=== PATIENT | male | born 1945 | race Caucasian/White ===

== ENCOUNTER → 2021-04-11 10:51 | Outpatient (CLI) | payer MEDICARE, OTHER, SELFPAY ==
[2021-04-11 11:12] LABS: RBC Urine None Seen (0-5/HPF)
[2021-04-11 11:38] LABS: Bilirubin Urine UA NEGATIVE (NEGATIVE); Color Urine UA YELLOW; Glucose Urine UA NEGATIVE (Negative); Ketones Urine UA NEGATIVE (NEGATIVE); Leukocyte Esterase Urine UA 1+ (NEGATIVE); Nitrite Urine UA NEGATIVE (Negative); Occult Blood Urine UA NEGATIVE (Negative); Protein Urine UA TRACE (Negative); Specific Gravity Urine UA 1.015 (1.000-1.035); Urobilinogen Urine UA 0.2 E.U./dL (0.2); pH Urine UA 7.5 (4.5-8.0)
[2021-04-11 11:40] LABS: Add Manual Diff / Slide Review NO; Basophils Absolute Auto 100 /uL (0-100); Basophils Percent Auto 0.6 % (0-2); Eosinophils Absolute Auto 200 /uL (0-450); Eosinophils Percent Auto 2.2 % (2-4); Hematocrit 43.4 % (41-53); Hemoglobin 14.8 g/dL (13.5-17.5); Lymphocytes Absolute Auto 2200 /uL (1100-4500); Lymphocytes Percent Auto 21.6 % (25-40); Mean Corpuscular HGB Conc 34.1 % (30-36); Mean Corpuscular Hemoglobin 29.3 PG (26-34); Monocytes Absolute Auto 900 /uL (0-900); Monocytes Percent Auto 9.1 % (3-14); Neutrophils Absolute Auto 6700 /uL (1500-7000); Neutrophils Percent Auto 66.5 % (50-75); Platelet Count 267 X10^3/uL (150-400); Red Blood Cell Count 5.05 X10^6/uL (4.5-5.9); Red Cell Distribution Width 14.1 % (11.6-14.8)
[2021-04-11 12:24] LABS: BUN Creatinine Ratio 18.3 (6-22); Blood Urea Nitrogen 15 mg/dL (9-20); Calcium 9.7 mg/dL (8.4-10.2); Carbon Dioxide 27 mmol/L (22-32); Chloride 100 mmol/L (98-107); Estimated Glomerular Filt Rate > 60.0 mL/min (>60); Glucose 133 mg/dL (80-110); HEMOLYSIS < 15 (0-50); Potassium 4.1 mmol/L (3.4-5.1); Sodium 138 mmol/L (137-145)
[2021-04-11 12:46] LABS: Appearance Urine UA Slightly Cloudy
[2021-04-11 12:47] LABS: Amorphous Sediment Urine 1+; Bacteria Urine Few (2-10); Culture Indicated Urine Specimen Cultured; Squamous Epithelial Cell Urine 1-5 /HPF (0-5/HPF); WBC Urine 30-100/HPF (0-5/HPF)
[2021-04-11 14:07] LABS: Hemoglobin A1C% w Est Avg Glu 7.5 % (4.0-6.0)
== END ==
PROVIDERS: PCP Internal Medicine; Referring Provider Orthopaedic Surgery; Visit Provider Orthopaedic Surgery
DX: Z01.818 Encounter for other preprocedural examination (principal); I10 Essential (primary) hypertension; R73.9 Hyperglycemia, unspecified; Z01.812 Encounter for preprocedural laboratory examination; N39.0 Urinary tract infection, site not specified
CPT/HCPCS: 36415; 80048; 81001; 83036; 85025; 87086; 93005

== ENCOUNTER → 2021-05-14 09:59 | Outpatient (CLI) | payer MEDICARE, OTHER, SELFPAY ==
[2021-05-14 13:22] LABS: COVID19 -Nasal RAPID Negative (Negative)
== END ==
PROVIDERS: PCP Internal Medicine; Visit Provider Nurse Practitioner
DX: Z01.812 Encounter for preprocedural laboratory examination (principal); Z20.822 Contact with and (suspected) exposure to COVID-19
CPT/HCPCS: 87635; C9803

== ENCOUNTER 2021-05-15 08:28 | Day surgery (SDC) | payer MEDICARE, OTHER, SELFPAY ==
[2021-05-08 09:45] VITALS: BMI 45.8
[2021-05-15] VITALS (12 sets, daily range): BP systolic 91–170; BP diastolic 51–107; PULSE 69–83; RESP 14–18; TEMP 35.6–37.3; O2SAT 92–100; BMI 45.8
[2021-05-15] MEDS: ACETAMINOPHEN 325 MG TABLET 975 MG PO (09:29)
[2021-05-15] MEDS: LACTATED RINGERS 1,000 ML 42 ML IV ×2 (09:30→14:00)
[2021-05-15] MEDS: PREGABALIN 75 MG CAPSULE PO (09:30)
[2021-05-15] MEDS: CELECOXIB 200 MG CAPSULE PO (09:30)
[2021-05-15] MEDS: VANCOMYCIN 1,000 MG/200 ML PIGGYBACK 200 MG IV (09:48)
--- NOTE | 2021-05-15 10:40 | P.OP_ITS ---
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 Same procedure as scheduled: Yes Indications: This is a 75-year-old gentleman with a remote history of left hip surgery. He had pins placed many years ago when he was young and now notes progressive worsening left hip pain. His x-rays show severe left hip osteoarthritis and retained multiple pins. Surgeon: Susan Meyers Human Resources Administrator: Zane Nelson Anesthesia Type: General and Spinal Operative Notes Findings: Severe left hip arthritis, multiple retained pins, adequate stability Closure Type: primary Specimen(s): other (Multiple Steinmann pins threaded) Prosthetic devices, grafts, tissues, transplants, or devices: Meyers and nephew R3 58 mm cup, Synergy high offset 14, 36 +0 femoral head Applied: drain(s) Estimated Blood Loss (mL): 250 Blood products transfused: none Procedure in detail: The patient was seen in the pre-operative area, where the patient identified the left hip as the operative site and this was marked with my initials. The patient received pre-operative antibiotics and was taken to the operating room and placed on the operative table in the right lateral decubitus position after satisfactory anesthesia. A multimedia author out was performed. The left leg was prepared from the ankle to the iliac crest with ChloroPrep in the usual fashion and draped through sterile drapes. The hip was approached through an approximately 26 cm incision centered over the greater trochanter and curving gently posteriorly as it went proximally. The patient's previous incision was incorporated. This was carried sharply to the fascia deshawn, which was divided and retracted with a self retaining retractor. The trochanteric bursa was excised with care being taken to avoid the sciatic nerve, which was identified and protected throughout the case. The short external rotators were incised and the capsulomuscular flap was raised and tagged for later repair. The piriformis was left intact. The hip was dislocated, and a femoral neck partial osteotomy performed approximately 15 mm above the lesser trochanter. The osteotomy was specifically designed to allow removal of the pins from a more proximal location. Bone was carefully removed from around the pins. It was markedly incorporated into the threaded Steinmann pins. The pins were meticulously freed from the overlying bone including chipping the bone out of the Steinmann pins. A combination of a trefine for removing broken hardware was placed over the pin and bone was meticulously removed from around all of the pins. A carefully attempted to free each 1 of the pins. I had a vise manager massage department needle-nose vice manager massage department and a vise manager massage department that had slap hammer that could be attached to it attempted also to spin the pins. They were severely incorporated into the bone and there was fairly dense bone around them. After extensive and meticulous surgery 2 of the pins were removed by attaching the slap hammer after care for fully freeing them to as close to the cortex as possible with a trephined. And 2 pins I was able to remove after using osteotome and chipping them out of the bone with a vice manager massage department and a slap hammer. Several of the other pins were too densely incorporated into the bone. One of the pins was a thinner threaded Steinmann pin and it broke into multiple pieces as a attempted to remove it. A checked cornell was also used to attach power to the pins trying to either advance them or remove them and eventually to the pins were removed using that. The final 2 pins after they had broken at multiple different levels were removed by using the trephined running along the pin and out of the lateral cortex of the femur. The 1st pin was jammed into the trefine and it required about 15 minutes on the back table to get the pin out of the trefine. During this time attention was directed to the acetabulum and the acetabulum was prepped for the implant. Retractors were placed around the femur. The canal was opened with a box cutting osteotome, followed by a T handled reamer and a lateralizing reamer. The small broach was then used, followed by sequential broaching until there was good stability of the broach in the femur. Retractors were placed to expose the acetabulum. The labrum and central soft tissues were removed. Reaming was performed initially going up in 2 mm increments, then 1 mm increments until good bite was obtained with an odd sized reamer. The cup 1 mm larger than the last reamer was then inserted using the appropriate anteversion guides. A trial neutral liner was placed. The broach was placed in the canal. A trial head and neck were then placed and the hip relocated and checked for leg length and stability. An intraoperative film confirmed the component position and no evidence of fracture. The patient was stable in the position of sleep, of squatting, and could be put through a range of motion with 45 degrees internal rotation without dislocation. At 90 degrees flexion, internal rotation to 70 ? was possible before dislocation. This was felt to be satisfactory and the appropriate components were opened, and the trials were removed. The acetabular liner was impacted into position. The final stem was then impacted into the prepared femoral canal. A brief Betadine soak was performed while trialing with head options. The hip was meticulously irrigated with normal saline. Finally the femoral head was impacted onto the stem. The acetabulum was cleared of all material and the hip relocated one final time. The capsulomuscular flap was then repaired to the greater trochanter though an awl hole using the tag sutures. The short external rotators were repaired with a nonabsorbable suture. A deep drain was placed and brought out anteriorly. The fascia deshawn was closed with Vicryl. The subcutaneous layer was closed with barbed sutures and skin lance. An Aquacel Ag dressing was applied and the patient was taken to recovery having tolerated the procedure well. Complications: none Post-operative Condition: stable Disposition: Acute Care Plan for aftercare: The patient will be maintained on a standard total hip replacement protocol with weight bearing as tolerated and posterior hip precautions. The patient will receive Aspirin and sequential compression devices for DVT prophylaxis. The patient will be discharged home when safe for the home environment.
--- NOTE | 2021-05-15 10:40 | PM.PREOP ---
Pre-operative Note COVID-19 COVID-19 status: Negative Interval Note History & Physical reviewed/Exam performed by Physician: Yes Changes to H&P: No
[2021-05-15] MEDS: CEFAZOLIN 1 GM VIAL 2 GM IV (11:20)
[2021-05-15] MEDS: BUPIVACAINE LIPOSOME 266 MG/20 ML VIAL INJ (12:11)
[2021-05-15] MEDS: BUPIVACAINE 0.25% W/ EPI 30 ML VIAL 60 ML INJ (12:11)
[2021-05-15] MEDS: TRANEXAMIC ACID 1,000 MG VIAL 2000 MG INJ (12:12)
[2021-05-15] MEDS: SODIUM CHLORIDE IRRIG SOLUTION 250 ML, EPINEPHrine 1 MG IRR (12:14)
--- NOTE | 2021-05-15 12:47 | SUR.OPER ---
Lateral on padded OR bed. Gel axillary roll. Arms secured on padded armboard with pillow supporting top arm. Padded hip positioner braces x4 - anterior and posterior chest and pelvis. Additional gel pad used anterior pelvis. Gel pad under bottom leg from knee to foot and secured with tape over sheet.
--- NOTE | 2021-05-15 14:00 | DI.RAD.S_ITS ---
PROCEDURE: XR PELVIS 1-2V INDICATIONS: INNER OP TECHNIQUE: 1 view of the lower pelvis acquired. COMPARISON: None. FINDINGS: Bones: Patient is status post left hip arthroplasty, with hardware components in expected positions. The hip joint appears congruent. The visualized bony structures appear intact. Soft tissues: Overlying postoperative changes are noted. No suspicious soft tissue densities. IMPRESSION: Postoperative changes of total left hip replacement. Dictated by: Raj Ventura M.D. on 05/15/2021 at 16:52 Approved by: Raj Ventura M.D. on 05/15/2021 at 16:54
--- NOTE | 2021-05-15 16:00 | DI.RAD.S_ITS ---
PROCEDURE: XR HIP W PEL IF DONE LT 2V INDICATIONS: LEFT TOTAL HIP TECHNIQUE: 2 view(s) of the hip acquired. COMPARISON: [facility], CR, XR PELVIS 1-2V, 05/15/2021, 14:45. FINDINGS: Bones: Patient is status post left hip arthroplasty, with hardware components in expected positions. The hip joint appears congruent. The visualized bony structures appear intact. Soft tissues: Overlying postoperative changes are noted. No suspicious soft tissue densities. IMPRESSION: Expected immediate postoperative appearance of left total hip arthroplasty. Dictated by: Stevenson Guerrero [facility] Interpreted: Laurent Mendez MD on 05/15/2021 at 16:46 Approved by: Laurent Mendez M.D. on 05/15/2021 at 17:16
[2021-05-15] MEDS: LACTATED RINGERS 1,000 ML 125 ML IV (17:59)
[2021-05-15] MEDS: CEFAZOLIN VIAL 3 GM in SODIUM CHLORIDE 0.9% 100 ML 200 ML IV (19:32)
[2021-05-15] MEDS: ACETAMINOPHEN 325 MG TABLET 650 MG PO (20:57)
[2021-05-15] MEDS: ASPIRIN EC 81 MG TABLET PO (20:57)
[2021-05-15] MEDS: ATORVASTATIN 20 MG TABLET 40 MG PO (20:58)
[2021-05-15] MEDS: lisinopriL 10 MG TABLET PO (20:58)
[2021-05-15] MEDS: IBUPROFEN 400 MG TABLET PO (20:58)
[2021-05-16] MEDS: LACTATED RINGERS 1,000 ML 125 ML IV (00:47)
--- NOTE | 2021-05-16 01:44 | PC.NURSE ---
Addendum entered by Adwoa Jack R.N. 05/16/21 06:09: Now standing at bedside to attempt to void with staff standby. Addendum entered by Adwoa Jack R.N. 05/16/21 04:14: Sleeping soundly in bed with pillow between legs. Has cpap mask available in bed, but not wearing this device at this time. Addendum entered by Adwoa Jack R.N. 05/16/21 03:14: Educated pt on risk of urinary tract infection with full bladder unable to completely empty. Pt continues to refuse catheterization. Able to void 150 cc's at one time. States feels coffee is making a difference in ability to void. Continues to deny pain to left hip. Addendum entered by Adwoa Jack R.N. 05/16/21 02:35: Pt has emesis. Remains sitting up on side of bed and frequently standing to attempt to void. States emesis is not new and pt states occurs @ home. This medical underwriter encouraged pt to allow catheterization to drain bladder and pt continues to refuse. Requests decaf coffee and denies nausea. Has voided 20 cc/s. Original Note: Pt awake, alert resting quietly in bed. Denies pain to left hip and refuses scheduled ibuprofen. MISBAH dressing intact with battery pack functional and in pt's gown pocket. Hemovac compressed. Pt admits to full sensation to BL LE's. Requests scd's be removed. Provided pt with explanation of rationale for scd use and wear. Encouraged ankle waving and calf pumping. Ice to left hip. No void and pt denies urge to void. Taking oral fluids well and iv fluids continue to infuse. Attempted to void with standing with WHEEL BORER assistance. Bladder scanned for 581 cc's. Explained to pt anesthesia may be the cause of inability to void. Pt requests more time and stands to attempt void again. Encouraged pt to reconsider allowing staff to catheterize pt to empty bladder.
[2021-05-16] MEDS: CEFAZOLIN VIAL 3 GM in SODIUM CHLORIDE 0.9% 100 ML 200 ML IV (03:53)
[2021-05-16 04:52] VITALS: BP 114/61; PULSE 75; RESP 16; TEMP 36.2; O2SAT 97
--- NOTE | 2021-05-16 07:24 | P.PN_ITS ---
Subjective Subjective Date Patient Seen: 05/16/21 Time Patient Seen: 07:24 Interval history: Patient's pain is mild. Denies fever or chills. No nausea vomiting. Patient does have assistance at home. Has a ramp into his house. Otherwise without complaints this morning. Exam Vital Signs (past 8 hours): - 05/15/21 23:42 05/16/21 04:52 Temperature 97.0 F L 97.1 F L Pulse Rate 81 75 Respiratory Rate 16 16 Blood Pressure 148/74 H 114/61 Pulse Oximetry 92 97 Oxygen Delivery Method Room Air Oxygen Flow Rate 0 Narrative Exam Narrative: Morbidly obese male laying comfortably in bed in no apparent distress. Left hip dressing is clean dry and intact. Motor functions intact bilateral lower extremities. Sensation is grossly intact to light touch bilateral lower extremities. Both legs are warm and dry. And drain is in place with SS drainage to 125 mL since surgery. Objective Labs Result Diagrams: 05/16/21 07:00 [facility] Medical History Anxiety Diabetes DVT (deep venous thrombosis) (2005) Gout HLD (hyperlipidemia) HTN (hypertension) OLY on CPAP Osteoarthritis RBBB (right bundle branch block) Surgical History History of hip surgery History of tonsillectomy [place] teeth removed Family History Father Heart disease Hypertension Social History household members: significant other Smoking Status: Never smoker alcohol intake: former Assessment & Plan Post-op Postoperative Procedures: Procedures Operation Date: 05/15/21 10:45 Actual Procedure Side Surgeon p Total hip arthroplasty, removal of orthopedic pin from hip Left Susan Meyers MD Postoperative day: 1 Postoperative status: doing well Postoperative status narrative: Stable status post total hip arthroplasty, left Postoperative plan narrative: Weight-bearing as tolerated. Posterior hip precautions. Mobilize with physical therapy. Aspirin for DVT prophylaxis. Likely discharge home today.
[2021-05-16 07:38] LABS: Hematocrit 35.8 % (41-53); Hemoglobin 12.2 g/dL (13.5-17.5)
[2021-05-16 07:52] VITALS: BP 128/71; PULSE 79; RESP 18; TEMP 37; O2SAT 95
--- NOTE | 2021-05-16 09:56 | PT.IIE ---
Current Diagnoses Other unilateral secondary osteoarthritis of hip (05/15/21) Pain in left hip (05/15/21) Surgery Performed Operation Date: 05/15/21 10:45 Actual Procedures p Total hip arthroplasty, removal of orthopedic pin from hip(Left) - Susan Meyers MD Surgical History (Last Reviewed 05/16/21 @ 07:26 by Luis Daniel Adrian PA-C) History of tonsillectomy Medical History (Last Reviewed 05/16/21 @ 07:26 by Luis Daniel Adrian PA-C) Anxiety Diabetes DVT (deep venous thrombosis) (2005) Gout HLD (hyperlipidemia) HTN (hypertension) OLY on CPAP Osteoarthritis RBBB (right bundle branch block) Physical Therapy Inpatient Evaluation/Re-Eval M1 PT/OT-IP Prior Functional Status Start: 05/16/21 12:10 Freq: NEEDED Status: Active Protocol: Document 05/16/21 09:56 AB (Rec: 05/16/21 12:24 AB [id number]) Medical Review Prior Functional Status Medical History Reviewed Yes Communication able to make needs known Mobility and Gait pt stated taht he is independent with all mobilities and ambulation without AD but has difficulty with ambulation and stated that he usually wobbles Social History Household Members significant other Living Arrangements House Number of Floors (Floors) One Floor Number of Stairs To Enter/Railing? 2 steps with R rail to enter Home Environment Standard Height Toilet,Walk in Shower Home Equipment Front Wheel Walker,Shower Seat with Backrest,Hand Held Shower,Grab Bars Near Toilet, Grab Bars In Shower M2 PT-IP Current Condition Start: 05/16/21 12:10 Freq: NEEDED Status: Active Protocol: Document 05/16/21 09:56 AB (Rec: 05/16/21 12:24 AB [email or web address]) Physical Therapy Current Condition Current Condition Evaluation Date 05/16/21 Treatment Diagnosis s/p L DEO posterior approach; difficulty in walking Onset Date 05/15/21 Precautions Posterior Hip Precautions No Hip Flexion > 90 degrees,No Hip Internal Rotation,No Hip Adduction Weight Bearing Status Weight Bearing Status Weight Bear as Tolerated Allowed Weight Bearing Amount (enter % LLE WBAT or #) (%) M3 PT-IP Subjective Start: 05/16/21 12:10 Freq: NEEDED Status: Active Protocol: Document 05/16/21 09:56 AB (Rec: 05/16/21 12:24 [email or web address]) Subjective Physical Therapy Visit Type Type Initial Evaluation Visit Start Time 09:56 Visit Stop Time 10:48 Total Visit Minutes 52 Number of BATCH PLANT OPERATOR Visits 0 Physical Therapy Visit Comments Patient Comments agreeable to do PT Therapy Pain Assessment Pain When Pain Assessed At Rest Pain Present Pain Present Pain Reported Location Left Hip Intensity 4 Scale Used increases 5-6 with mobility Pain Management Techniques Apply Cold,Re-positioning, Timing of Activity with Medications M4 PT-IP Mobility and Gait Start: 05/16/21 12:10 Freq: NEEDED Status: Active Protocol: Document 05/16/21 09:56 AB (Rec: 05/16/21 12:24 [email or web address]) PT-Bed Mobility Assessment Supine to Sit Supine to Sit Maximum Assistance PT-Transfer Assessment Sit to and From Stand Sit to and from Stand Moderate Assistance,1 Person Assistance,Use of Upper Extremities Equipment Transfer Assistive Device Gait Belt,Front Wheeled Walker Orthotic/Prosthetic Devices or Brace: No Transfers Transfer Destination Chair Transfer Technique ambulated Transfer Ability Level of Assist Minimal Assistance,Moderate Assistance,1 Person Assistance ,Use of Upper Extremities Comments Mobility Comments educated pt regarding posterior hip precautions and pt requires cues to recall. pt completed supine to sit R rail max A and max cues. pt was able to sit on EOB SBA. completed sit to stand mod A and cues and ambulated to the chair mod A and cues. agreed to do stairs. completed sit to stand mod A and cues to maintain hip precautions. ambulated ~ 150 ft using FWW min to mod A and cues. pt completed up/down steps using R rail min A for ascending stairs but required mod A for descending. pt requires cues to maintain hip precautions. pt ambulated back to his room ~ 150 ft using FWW min to mod A. agreed to sit on chair. positioned on chair. call light and table placed within reach. caregiver training set up at 1 pm this afternoon. also informed pt regarding getting another FWW as pt's current walker is too short for him despite adjustments. pt will let his GF know to get another FWW for him. Gait Assessment Gait Gait Assistance Required: Minimum Assistance,Moderate Assistance Distance (Feet) 150 Able to Maintain Weight Bearing Status Yes During Gait Assistive Devices Assistive Device Gait Belt,Front Wheeled Walker Orthotic/Prosthetic Devices or Brace: No Gait Deviations General Gait Pattern Antalgic,Wide Based Gait Factors Limiting Gait Function Factors Limiting Gait Function Decreased Activity Tolerance, Decreased Strength,Difficulty Following Directions,Limited Range of Motion,Pain,Poor Balance,Poor Safety Awareness Stair Climbing Assessment Evaluation Level of Assist On Stairs Minimal Assistance,Moderate Assistance,1 Person Assistance Devices Stair Climbing Assistive Devices Right Railing Technique/Endurance Stair Climbing Direction Ascend and Descend Stair Climbing Technique Step to Step Number of Steps Climbed 3 Query Text: Stair Climbing Set # Repetitions (reps) 1 PT-Balance Assessment Sitting Balance and Reactions Static Sitting Balance Ability Good Dynamic Sitting Balance Ability Good Standing Balance and Reactions Static Standing Balance Ability Fair Dynamic Standing Balance Ability Fair Device Used FWW M5 PT-IP Objective Assessments Start: 05/16/21 12:10 Freq: NEEDED Status: Active Protocol: Document 05/16/21 09:56 AB (Rec: 05/16/21 12:24 AB [id number]) Orientation Orientation/Cognition Level of Alertness Alert Orientation Name,Age,Place,Situation Safety Awareness Decreased Safety Awareness Memory Description 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,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 Gross Range of Motion Lower Extremity ROM Assessment Within Functional Limits Strength Lower Extremity Strength Assessment Left Impaired Hip 3+/5 Knee 4-/5 Sensation Assessment Sensation Gross Sensation WNL Muscle Tone Muscle Tone WNL Yes M6 PT-IP Treatment Start: 05/16/21 12:10 Freq: NEEDED Status: Active Protocol: Document 05/16/21 09:56 AB (Rec: 05/16/21 12:24 [email or web address]) Physical Therapy Treatment Education Education Provided Precautions,Weight Bearing Status,Post-Op Packet,Safety M7 PT-IP Assessment and Plan Start: 05/16/21 12:10 Freq: NEEDED Status: Active Protocol: Document 05/16/21 09:56 AB (Rec: 05/16/21 12:24 AB [email or web address]) PT Summary Assessment and Plan Potential Rehabilitation Potential Fair Status of Condition at Evaluation Evolving Summary Impairments Pain,ROM,Strength,Balance, Coordination,Sensation,Tone, Cognition,Bed Mobility, Transfers,Gait,Activity Tolerance Assessment Summary pt requiring mod A with mobility. caregiver training set up at 1 pm this afternoon . will continue to assess progress for safe d/c home. Goals Bed Mobility Goal Standby Assistance Transfer Goal Standby Assistance,Front Wheeled Walker Gait Goal Standby Assistance,Front Wheel Walker Gait Distance 200 Other Goals up/down 2 steps using R rail SBA Days to Meet Goals 5 Frequency of Treatment Frequency Of Treatment Twice a Day Treatment Plan Physical Therapy Treatment Plan Bed Mobility Training,Transfer Training,Gait Training, Therapeutic Exercise,Balance Retraining,Post Op Education, Discharge Planning,Hot or Cold Pack,Neuromuscular Re-ed, Coordination Retraining,Manual Therapy Precautions Posterior Hip Precautions No Hip Flexion > 90 degrees,No Hip Internal Rotation,No Hip Adduction Other Precautions LLE WBAT Recommendations To Nursing Amount of Assist Needed 1 Person Assist Discharge Recommendations PT Discharge Recommendations Home with Assistance, Outpatient PT Transportation Needs at Discharge Private Vehicle
[2021-05-16] MEDS: IBUPROFEN 400 MG TABLET PO ×2 (10:35→13:41)
[2021-05-16] MEDS: ACETAMINOPHEN 325 MG TABLET 650 MG PO (10:35)
[2021-05-16] MEDS: ASPIRIN EC 81 MG TABLET PO (10:36)
[2021-05-16] MEDS: DOCUSATE 100 MG CAPSULE PO (10:36)
[2021-05-16] MEDS: hydroCHLOROthiazide 25 MG TABLET 50 MG PO (10:38)
[2021-05-16] MEDS: OXYCODONE IR 5 MG TABLET PO (11:17)
[2021-05-16 11:31] VITALS: BP 138/69; PULSE 89; RESP 16; TEMP 36.6; O2SAT 95
--- NOTE | 2021-05-16 11:57 | CM.DANOTE ---
DCP/Assessment: Reviewed chart. Patient is a 75yr old male admitted to [facility] for left DEO performed on 05-15-[address] Meyers. PCP is Dr. Nolan. Primary payor is 1)Medicare 2)[employer]. Met with patient explained CM/SW role. Patient reports that he hopes to d/c home today. Patient with therapy evaluation pending at time of LOFTER's AM visit. Patient resides with supportive significant other and has outpatient therapy arranged through [facility]. Patient does not anticipate any d/c planning needs. P: Anticipate home when medically stable. SERGO Angel Discharge Planning/Care Management Advanced directive, confirm from FAMILY Start: 05/15/21 17:57 Freq: Q24H Status: Active Protocol: Document 05/15/21 18:19 CJW (Rec: 05/15/21 18:20 CJW [id number]) Advance Directive, confirm on record Time 18:20 Person contacted patient Copy received No CM Discharge Assessment Start: 05/16/21 11:52 Freq: Status: Active Protocol: Document 05/16/21 11:53 KJS (Rec: 05/16/21 11:57 KJS [id number]) Discharge Planning Assessment Assigned Groover Operator SERGO Angel Contact Information Aubrie Leyvawillie (significant other ) # [phone] Advance Directives? Yes Advance Directives on File No History Provided By Patient,Medical Record Prior Living Arrangements House Household Members significant other Type of transporation used prior to Drives own vehicle admit Independent with ADL's Yes Is patient alert and oriented? Yes Caregiver for Another No DME Already Rented / Owned FWW / Walker Patient/Family Preference OP PT Therapy Barriers to Discharge No Discharge Plan Home Transportation Arrangement Significant other to provide transport. Referrals Initiated None needed Whiteboard Updated in Patient Room with Yes name and ext. # of Groover Operator Review Status In Process Next Review Type Continued Stay Review Pre-Anesthesia Assessment Start: 05/08/21 09:45 Freq: Status: Active Protocol: Document 05/08/21 09:45 CAB (Rec: 05/08/21 10:38 CAB [id number]) Pre-Anesthesia Assessment PAC Comment Pt extremely anxious about anesthesia Preferred Name Rakesh or Khris Patient Information Reviewed Via Phone Assessment Assessment Completed With Patient Diagnostic Results BMP/CMP,CBC,EKG Comment Labs/EKG @ 04/11/21, COVID screen-pt needs to schedule Primary Care Provider Chuck Nolan Seen Specialist in Last 12 Months Yes Specialist Seen Orthopedist Primary Language Danish Universal Branch Consultant Required No Height 180.34 cm Weight 149.232 kg Body Mass Index (BMI) 45.8 Hearing Ability Normal Visual Assist Glasses Dentition Type Teeth, Natural Present,Teeth, Missing Barriers to Learning None Hx Anesthesia Reactions No: Pt extremely anxious about anesthesia Additional comment OLY-doesn't wear CPAP regularly, advised he must bring dos Hx Family Anesthesia Reaction No Hx Malignant Hyperthermia No Hx Blood Transfusions No Anesthesia Review Requested No alcohol intake former Smoking Status Never smoker Substance Use Type does not use Pain Present Pain Reported Musculoskeletal Symptoms Abnormal Gait,Difficulty Walking,Joint Pain History of Falling (Recent or History of No ) Patient is completely paralyzed or No completely immobile Prosthesis or Orthotic Device Cane,Front Wheel Walker Mental Status Oriented to own ability Is patient on oxygen? No Does patient have ESTRELLA/SOB No Hx Sleep Apnea Yes CPAP/BIPAP use prescribed used intermittently Will Bring CPAP/BIPAP DOS Yes Currently Taking a Beta Armando No Can You Climb a Flight of Stairs Without Yes SOB Hx Chest Pain No Hx SOB No Hx Syncope or Dizziness No Anti-Coagulant Therapy No Has a Education Assistant No Cardiac Testing No Hx Pacemaker/ICD No Pacemaker Rep Required? No Cardiac Clearance Received Not Applicable Diet Type At Home Regular dysphagia No Urinary Catheter Present No Hx Urinary Self Catheterization No Diabetes Yes: Does not check blood sugars HgbA1C 7.5 Date 04/11/21 Comment Strongly advised pt to check BS, call dos if questions/ concerns Presence of External or Internal Medical Yes: CPAP, left hip pins Devices Have you had any close contact with No someone diagnosed with COVID-19? Marital Status / Lives With significant other Prior Living Arrangements House Number of Floors (Floors) One Floor Support System Significant Other Does the Patient Have Assistance After Yes Surgery Patient Discharge Plan Description Return Home Comment Pt not advised on length of stay per surgeon Feels Safe in Current Environment Yes Been Physically Hurt or Threatened By a No Person in Current Environment Do you have thoughts of harming yourself None or others? Are you currently considering suicide? No Do you have a plan to hurt yourself or No Plan others? Do You Have Any Spiritual Beliefs That No May Affect Your HC Choices? Do You Have Any Cultural Practices That No May Affect Your HC Choices? Comment Sikhism Who Can We Speak to About Patient's Care Family, friends Identifying Code for Release of Patient Declines to issue Information Health Care Proxy/Next of Kin Aubrie (S.O.) Health Care Proxy Emergency Contact Name Aubrie (S.O.) Emergency Contact Advance Directives? No Power of Double Back Operator Yes Power of Double Back Operator Name Aubrie (S.O.) Power of Double Back Operator PAC Instructions Bring CPAP/BIPAP,Diabetes instructions,Durable medical equipment,Medications to take/ avoid,Nasal antibiotic,No ETOH /petroleum product on skin DOS ,NPO,Post-op transportation, Pre-surgical wash,Sensory aids ,Sturdy shoes/comfortable clothes,Do not bring valuables and remove jewelry
--- NOTE | 2021-05-16 12:52 | P.DS_ITS ---
History of Present Illness History of Present Illness Date Patient Seen: 05/16/21 Time Patient Seen: 12:52 Chief complaint: Hip pain Narrative: Patient did well with physical therapy. Otherwise no new complaints since being seen this morning. Discharge Providers Provider Discharge Date: 05/16/21 Primary care physician: Chuck Nolan MD Consults: 05/07/21 11:22 Consult to Anesthesiology Routine Comment: Consulting Provider: Anesthesiologist Reason for consultation: Regional block for post operative pain control 05/15/21 09:09 Consult to Respiratory Therapy Evaluate & Treat Comment: Physician Instructions: Evaluate and treat 05/15/21 17:07 Consult to Discharge Planning Routine Comment: Consult to Physical Therapy Evaluate & Treat Comment: Physician Instructions: post op DEO protocol Consult to Respiratory Therapy Evaluate & Treat Comment: Physician Instructions: Evaluate and treat Discharge provider: Luis Daniel Adrian PA-C Summary Hospital Course Discharge Diagnosis: Severe left hip OA, history of prior femoral pinning 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 He had pins placed many years ago when he was young and now notes progressive worsening left hip pain. His x-rays show severe left hip osteoarthritis and read multiple retained pins. Surgeon: Susan Meyers Water Quality Specialist: Zane Nelson Anesthesia Type: General and Spinal Operative Notes Findings: Severe left hip arthritis, multiple retained pins, adequate stability Closure Type: primary Specimen(s): none sent Prosthetic devices, grafts, tissues, transplants, or devices: Meyers and nephew R3 58 mm cup, Synergy Applied: drain(s) Estimated Blood Loss (mL): 250 Blood products transfused: none Patient admitted to the hospital for left total hip arthroplasty posterior approach, removal of retained internal fixation left hip. Patient consented to the same. Patient taken operating room on 05/15/2021 underwent above-mentioned procedure. Patient back in his room recovering well as in stable condition. Patient will be discharged home today in stable condition. Exam Vital Signs (past 8 hours): - 05/16/21 07:52 05/16/21 11:31 Temperature 98.6 F 97.8 F Pulse Rate 79 89 Respiratory Rate 18 16 Blood Pressure 128/71 138/69 Pulse Oximetry 95 95 Oxygen Delivery Method Room Air Oxygen Flow Rate 0 Narrative Exam Narrative: See progress note Objective Labs Result Diagrams: 05/16/21 07:00 Labs: Laboratory Results - last 24 hr 05/16/21 07:00 Hgb 12.2 L Hct 35.8 L PFSH Medical History Anxiety Diabetes DVT (deep venous thrombosis) (2005) Gout HLD (hyperlipidemia) HTN (hypertension) OLY on CPAP Osteoarthritis RBBB (right bundle branch block) Surgical History History of hip surgery History of tonsillectomy [place] teeth removed Family History Father Heart disease Hypertension Social History household members: significant other Smoking Status: Never smoker alcohol intake: former Discharge Assessment & Plan Assessment and Plan Assessment: Patient progressing as expected status post left total hip arthroplasty Plan of Treatment: Weight-bearing as tolerated, posterior hip precautions, aspirin for DVT prophylaxis. Discharge home today in stable condition. Discharge Plan Discharge Plan Patient Disposition: Home Discharge orders & Medications Discharge Orders: Discharge (Order); Ordered 05/16/21 Ordered By: Luis Daniel Adrian Prescriptions: New acetaminophen 325 mg Tablet 650 mg PO TID Qty: 60 RF: 0 aspirin 81 mg Tablet,Delayed Release (Dr/Ec) 81 mg PO BID Qty: 60 RF: 0 ibuprofen 400 mg Tablet 400 mg PO Q4HR Qty: 60 RF: 0 oxycodone 5 mg Tablet 5 mg PO Q3HR PRN (Reason: Pain, Moderate (4-6)) Qty: 60 RF: 0 polyethylene glycol 3350 17 gram Powder In Packet 17 gm PO DAILY PRN (Reason: Constipation) Qty: 10 RF: 0 Continued hydrochlorothiazide 50 MG tablet 50 mg PO QDAY Qty: 90 RF: 2 atorvastatin 40 MG tablet 40 mg PO HS Qty: 90 RF: 3 lisinopril 2.5 MG tablet 10 mg PO BEDTIME RF: 0 Discontinued aspirin 81 MG tablet,delayed release (DR/EC) 81 mg OR QDAY Qty: 0 RF: 0 Follow up/Referrals: Chuck Nolan MD [Primary Care Provider] - Susna Meyers MD [Physician] - (Two weeks) Diet/Activity/Treatments Diet: Carb-consistent/Diabetic Activity: Weight-bearing as tolerated, posterior hip precautions Cold/Heat Therapy: Ice as needed Skin/Wound/Dressing Care Report to your healthcare provider any signs of infection, such as:: chills, fever, increased pain, unusual drainage and unusual redness Dressing: Keep dressing clean and dry Visit Report/Discharge Packet Instructions: DI for Hip Replacement Stand Alone Forms: Surgery Discharge Discharge Data Primary Care Provider: Chuck Nolan Attending Provider: Susan Meyers
--- NOTE | 2021-05-16 13:15 | PT.IPTN ---
Current Diagnoses Other unilateral secondary osteoarthritis of hip (05/15/21) Pain in left hip (05/15/21) Surgery Performed Operation Date: 05/15/21 10:45 Actual Procedures p Total hip arthroplasty, removal of orthopedic pin from hip(Left) - Susan Meyers MD Physical Therapy Treatment Note M2 PT-IP Current Condition Start: 05/16/21 12:10 Freq: NEEDED Status: Discharge Protocol: Document 05/16/21 09:56 AB (Rec: 05/16/21 12:24 AB [id number]) Physical Therapy Current Condition Current Condition Evaluation Date 05/16/21 Treatment Diagnosis s/p L DEO posterior approach; difficulty in walking Onset Date 05/15/21 Precautions Posterior Hip Precautions No Hip Flexion > 90 degrees,No Hip Internal Rotation,No Hip Adduction Weight Bearing Status Weight Bearing Status Weight Bear as Tolerated Allowed Weight Bearing Amount (enter % LLE WBAT or #) (%) M3 PT-IP Subjective Start: 05/16/21 12:10 Freq: NEEDED Status: Discharge Protocol: Document 05/16/21 13:15 AB (Rec: 05/16/21 17:12 AB [id number]) Subjective Physical Therapy Visit Type Type Treatment Note Visit Start Time 13:15 Visit Stop Time 13:40 Total Visit Minutes 25 Number of INVESTMENT OFFICER Visits 0 Therapy Pain Assessment Pain When Pain Assessed At Rest Location Left Hip Scale Used pain scale not stated M4 PT-IP Mobility and Gait Start: 05/16/21 12:10 Freq: NEEDED Status: Discharge Protocol: Document 05/16/21 13:15 AB (Rec: 05/16/21 17:12 AB [id number]) PT-Bed Mobility Assessment Supine to Sit Supine to Sit Moderate Assistance Sit to Supine Sit to Supine Standby Assistance PT-Transfer Assessment Sit to and From Stand Sit to and from Stand Contact Guard Assistance,1 Person Assistance,Use of Upper Extremities Equipment Transfer Assistive Device Gait Belt,Front Wheeled Walker Orthotic/Prosthetic Devices or Brace: No Transfers Transfer Destination Bed,Chair Transfer Technique Stand Step Pivot Transfer Ability Level of Assist Standby Assistance,Contact Guard Assistance,1 Person Assistance,Use of Upper Extremities Comments Mobility Comments pt sitting on chair. GF in room for caregiver training. educated GF regarding pt's hip precautions, use of safety belt and how to assist pt. GF was able to put safety belt on pt assisted pt with sit to stand and transfer to bed. pt is impulsive and educated on safety. educated GF on how to cue pt. pt complete sit to supine SBA but requiring mod A for supine to sit. educated GF on how to assist pt with bed mobility. pt requires cues for safety. pt ambulated out in the hallway with GF SBA . pt completed up/down stairs using R rail with GF assisting. CGA with ascending but mod A for descending. pt is very impulsive and directs his own care. GF stated that there will be 2 more people that can come and assist them at home if needed. pt now stating that he has 2 platform steps to enter the house. GF confirms. Pt refused to do anymore stair training. pt ambulated back to his room using FWW sBA. sat on chair. educated on safety again. educated on how to do stair climbing using FWW and understood. Call light placed within reach. updated nurse regarding pt's mobility and d/c plan. Gait Assessment Gait Gait Assistance Required: Standby Assistance,Contact Guard Assist Distance (Feet) 150 Able to Maintain Weight Bearing Status Yes During Gait Assistive Devices Assistive Device Gait Belt,Front Wheeled Walker Orthotic/Prosthetic Devices or Brace: No Gait Deviations General Gait Pattern Antalgic,Decreased Stride Length,Decreased Feet Clearance Factors Limiting Gait Function Factors Limiting Gait Function Decreased Activity Tolerance, Difficulty Following Directions,Limited Range of Motion,Pain,Poor Balance,Poor Safety Awareness Stair Climbing Assessment Evaluation Level of Assist On Stairs Contact Guard Assistance, Moderate Assistance,1 Person Assistance Devices Stair Climbing Assistive Devices Right Railing Technique/Endurance Stair Climbing Direction Ascend and Descend Stair Climbing Technique Step to Step Number of Steps Climbed 3 Stair Climbing Set # Repetitions (reps) 2 M5 PT-IP Objective Assessments Start: 05/16/21 12:10 Freq: NEEDED Status: Discharge Protocol: Document 05/16/21 09:56 AB (Rec: 05/16/21 12:24 AB [id number]) Orientation Orientation/Cognition Level of Alertness Alert Orientation Name,Age,Place,Situation Safety Awareness Decreased Safety Awareness Memory Description 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,Supervisor Pig Machine Impaired Gross Range of Motion Lower Extremity ROM Assessment Within Functional Limits Strength Lower Extremity Strength Assessment Left Impaired Hip 3+/5 Knee 4-/5 Sensation Assessment Sensation Gross Sensation WNL Muscle Tone Muscle Tone WNL Yes M6 PT-IP Treatment Start: 05/16/21 12:10 Freq: NEEDED Status: Discharge Protocol: Document 05/16/21 13:15 AB (Rec: 05/16/21 17:12 AB [id number]) Physical Therapy Treatment Education Education Provided Precautions,Safety M7 PT-IP Assessment and Plan Start: 05/16/21 12:10 Freq: NEEDED Status: Discharge Protocol: Document 05/16/21 13:15 AB (Rec: 05/16/21 17:12 AB [id number]) PT Summary Assessment and Plan Potential Rehabilitation Potential Fair Summary Impairments Pain,ROM,Strength,Balance, Coordination,Sensation,Tone, Cognition,Bed Mobility, Transfers,Gait,Activity Tolerance Progress Towards Goals Slow Progress due to Pain,Slow Progress - Other Assessment Summary caregiver training completed. pt is impulsive and directs his own care. GF stated that they has 2 othe people that can come in to assist them if needed. GF was able to assist pt with mobility using FWW. pt has outpt PT set up. Goals Bed Mobility Goal Standby Assistance Transfer Goal Standby Assistance,Front Wheeled Walker Gait Goal Standby Assistance,Front Wheel Walker Gait Distance 200 Other Goals up/down 2 steps using R rail SBA Days to Meet Goals 5 Frequency of Treatment Frequency Of Treatment Twice a Day Treatment Plan Physical Therapy Treatment Plan Bed Mobility Training,Transfer Training,Gait Training, Therapeutic Exercise,Balance Retraining,Post Op Education, Discharge Planning,Hot or Cold Pack,Neuromuscular Re-ed, Coordination Retraining,Manual Therapy Precautions Posterior Hip Precautions No Hip Flexion > 90 degrees,No Hip Internal Rotation,No Hip Adduction Other Precautions LLE WBAT Recommendations To Nursing Amount of Assist Needed 1 Person Assist Discharge Recommendations PT Discharge Recommendations Home with Assistance, Outpatient PT Transportation Needs at Discharge Private Vehicle
== END 2021-05-16 14:50 | disposition home or self-care (01) ==
LOC: OR 08:35 → AC 08:35
PROVIDERS: PCP Internal Medicine; Referring Provider Orthopaedic Surgery; Visit Provider Orthopaedic Surgery
PROC: (CPT 27130; principal; 2021-05-15 10:45)
DX: M16.7 Other unilateral secondary osteoarthritis of hip (principal); Z87.39 Personal history of other diseases of the musculoskeletal system and connective tissue; I10 Essential (primary) hypertension
CPT/HCPCS: 27130; 36415; 72170; 73502; 76000; 85014; 85018; 94660; 94762; 97162; 97530; C1776; C9290; J0171; J0690; J2250; J2274; J2704; J3010